=== PATIENT | male | born 1995 | race Caucasian/White ===

== ENCOUNTER 2017-02-02 05:37 | Emergency (ER) | payer OTHER ==
[~2017-02-02] VITALS: Ht 182.9 cm; Wt 115.3 kg
[2017-02-02 05:42] VITALS: TEMP 37.7; Ht 182.9 cm; Wt 115.3 kg
--- NOTE | 2017-02-02 06:14 | EMERGENCY ROOM VISIT NOTE ---
History Report prepared by Larissa: Karen Gómez Under the Supervision of: Dr. Ashley Almanzar M.D. First contact with patient: 05:50 Chief Complaint: ILLNESS Stated Complaint: PNEUMONIA,HIGH FEVER,VOMITING,FEEL LIKE PASSING OU History of Present Illness The patient is a 21 year old male who presents to the Emergency Room with complaints of persistent illness starting 10 days ago. He has had a productive cough. The patient first went to a clinic that started him on clarithromycin for bronchitis. He took it for 6 days without any improvement so went to the doctor yesterday. He had a chest X-ray which showed pneumonia. He was prescribed a new antibiotic which he has not started yet. He has had a low fever for the past 4-5 days. Last night his fever worsened. At 2300 his temperature was 103.7. He took some Tylenol which helped somewhat. He woke up at 0500 today with vomiting. He felt like passing out. He was in [place] over the summer. He denies any other recent travel. Source of History: patient Onset: 10 days ago Position: other (global) Quality: other (illness) Timing: other (persistent) Associated Symptoms: + fevers, + cough, + vomiting Review of Systems See HPI for pertinent positives & negatives. A total of 10 systems reviewed and were otherwise negative. Past Medical & Surgical Medical Problems: (1) No chronic problems Family History No pertinent family history stated. Social History Smoking Status: Never Smoker Marital Status: single Occupation Status: [employer] student Current/Historical Medications Scheduled Doxycycline Monohydrate (Monodox), 100 MG PO BID Allergies Coded Allergies: Amoxicillin (Verified Allergy, Unknown, unknown, 02/02/17) Dried Fruit (Verified Allergy, Unknown, hives, 02/02/17) Peanut (Verified Allergy, Unknown, hives, 02/02/17) Physical Exam Vital Signs Date Time Temp Pulse Resp B/P (MAP) Pulse Ox O2 Delivery O2 Flow Rate FiO2 02/02/17 08:18 76 14 118/77 96 02/02/17 07:02 94 02/02/17 07:00 96 18 120/67 94 Room Air 02/02/17 05:42 37.7 110 18 133/84 95 Room Air Physical Exam Vital signs reviewed. General: Well-appearing male, dry cough, in no significant distress. HEENT: Nasal congestion. No scleral icterus, PERRLA, neck supple. No meningeal signs. Mild erythema to the posterior oropharynx. Atraumatic. Mild tenderness to palpation over the maxillary sinuses bilaterally. No tenderness over the frontal sinus. Cardiovascular: Regular rate and rhythm, no extra sounds. Pulmonary: Clear to auscultation bilaterally, normal work of breathing. Abdomen: Soft, nontender, nondistended, positive bowel sounds. Musculoskeletal: Atraumatic, no peripheral edema. Neurologic: Patient awake alert and oriented x 3, full strength in all 4 extremities. Cranial nerves 2 through 12 grossly intact. Skin: Warm, dry, no rash Medical Decision & Procedures ER Provider Diagnostic Interpretation: X-ray results as stated below per interpretation by me and the radiologist: CHEST 2 VIEWS ROUTINE CLINICAL HISTORY: Fever, cough. COMPARISON STUDY: No previous studies for comparison. FINDINGS: The cardiac and mediastinal contours are normal. There is no evidence of focal pulmonary consolidation. There is no evidence of failure. No pleural effusions are visualized.[ IMPRESSION: No active disease in the chest. Electronically signed by: Rodríguez Woodard M.D. 02/02/2017 6:33 AM Dictated Date/Time: 02/02/2017 6:33 AM Laboratory Results 02/02/17 06:10 Red Blood Count 5.36, Mean Corpuscular Volume 85.1, Mean Corpuscular Hemoglobin 29.9, Mean Corpuscular Hemoglobin Concent 35.1, Mean Platelet Volume 10.6, Neutrophils (%) (Auto) 72.5, Lymphocytes (%) (Auto) 12.8, Monocytes (%) (Auto) 13.8, Eosinophils (%) (Auto) 0.4, Basophils (%) (Auto) 0.2, Neutrophils # (Auto ) 8.98, Lymphocytes # (Auto) 1.59, Monocytes # (Auto) 1.71, Eosinophils # (Auto ) 0.05, Basophils # (Auto) 0.03 02/02/17 06:10 Test 02/02/17 05:44 02/02/17 06:10 Influenza Type A (RT-PCR) Neg for Influ A (NEG) Influenza Type B (RT-PCR) Neg for Influ B (NEG) White Blood Count 12.40 K/uL (4.8-10.8) Red Blood Count 5.36 M/uL (4.7-6.1) Hemoglobin 16.0 g/dL (14.0-18.0) Hematocrit 45.6 % (42-52) Mean Corpuscular Volume 85.1 fL (80-100) Mean Corpuscular Hemoglobin 29.9 pg (25-34) Mean Corpuscular Hemoglobin Concent 35.1 g/dl (32-36) Platelet Count 174 K/uL (130-400) Mean Platelet Volume 10.6 fL (7.4-10.4) Neutrophils (%) (Auto) 72.5 % Lymphocytes (%) (Auto) 12.8 % Monocytes (%) (Auto) 13.8 % Eosinophils (%) (Auto) 0.4 % Basophils (%) (Auto) 0.2 % Neutrophils # (Auto) 8.98 K/uL (1.4-6.5) Lymphocytes # (Auto) 1.59 K/uL (1.2-3.4) Monocytes # (Auto) 1.71 K/uL (0.11-0.59) Eosinophils # (Auto) 0.05 K/uL (0-0.5) Basophils # (Auto) 0.03 K/uL (0-0.2) RDW Standard Deviation 40.6 fL (36.4-46.3) RDW Coefficient of Variation 13.1 % (11.5-14.5) Immature Granulocyte % (Auto) 0.3 % Immature Granulocyte # (Auto) 0.04 K/uL (0.00-0.02) Anion Gap 8.0 mmol/L (3-11) Est Creatinine Clear Calc Drug Dose 141.7 ml/min Estimated GFR () 112.6 Estimated GFR (Non- 97.2 BUN/Creatinine Ratio 9.6 (10-20) Calcium Level 8.9 mg/dl (8.5-10.1) Total Bilirubin 0.9 mg/dl (0.2-1) Direct Bilirubin 0.3 mg/dl (0-0.2) Aspartate Amino Transf (AST/SGOT) 27 U/L (15-37) Alanine Aminotransferase (ALT/SGPT) 56 U/L (12-78) Alkaline Phosphatase 127 U/L (45-117) Total Protein 7.7 gm/dl (6.4-8.2) Albumin 3.4 gm/dl (3.4-5.0) Laboratory results per my review. Medications Administered Medications (Trade) Dose Ordered Sig/Gricelda Route Start Time Stop Time Status Last Admin Dose Admin Sodium Chloride 500 ml @ 999 mls/hr Q31M STAT IV 02/02/17 06:41 02/02/17 07:11 DC 02/02/17 06:59 999 MLS/HR Ketorolac Tromethamine (Toradol Inj) 30 mg NOW STAT IV 02/02/17 06:42 02/02/17 06:43 DC 02/02/17 06:59 30 MG Pseudoephedrine HCl (Sudafed Tab) 60 mg NOW STAT PO 02/02/17 07:20 02/02/17 07:21 DC 02/02/17 07:35 60 MG Doxycycline Hyclate (Vibramycin Cap) 100 mg ONE ONCE PO 02/02/17 08:00 02/02/17 08:01 DC 02/02/17 08:15 100 MG ED Course 0601: Past medical records reviewed. The patient was evaluated in room B10. A complete history and physical examination was performed. 0641: NSS 500 ml @ 999 mls/hr IV. 0642: Toradol Inj 30 mg IV. 0718: I reevaluated the patient. I updated him on the results. He will go for CT. 0720: Sudafed Tab 60 mg PO. Medical Decision Differential diagnosis: Influenza, other viral illness, pneumonia, urinary tract infection, metabolic abnormality, medication effect, cellulitis, meningitis, intra-abdominal source. This patient was evaluated and appeared to be in no significant distress. Physical examination is consistent with a viral type etiology with a likely secondary sinusitis. The patient has already completed a course of clarithromycin. He remains febrile. CT scan of sinuses was performed and is read as above. There is no bony erosion. Physical examination reveals no meningeal signs. Laboratory work reveals a normal white blood cell count. The patient was given a prescription for doxycycline 100 mg twice a day for 10 days as he is allergic to penicillins and recently completed a macrolide. Patient was advised to use Sudafed every 6 hours as needed for nasal congestion, Tylenol as needed for pain and to complete the course of doxycycline as prescribed. He'll follow-up with [facility] or his PCP for reevaluation and return to the ER for worsening of symptoms or any medical concerns. Impression Primary Impression: Sinusitis Additional Impression: Febrile illness Scribe Attestation The scribe's documentation has been prepared under my direction and personally reviewed by me in its entirety. I confirm that the note above accurately reflects all work, treatment, procedures, and medical decision making performed by me. Departure Information Prescriptions Doxycycline Monohydrate (Monodox) 100 Mg Cap 100 MG PO BID for 10 Days, #20 CAP Prov: Ashley Almanzar M.D. 02/02/17 Referrals No Doctor, Assigned (PCP) Patient Instructions My [facility] Problem Qualifiers
--- NOTE | 2017-02-02 06:34 | DIAGNOSTIC IMAGING REPORT ---
CHEST 2 VIEWS ROUTINE CLINICAL HISTORY: Fever, cough. COMPARISON STUDY: No previous studies for comparison. FINDINGS: The cardiac and mediastinal contours are normal. There is no evidence of focal pulmonary consolidation. There is no evidence of failure. No pleural effusions are visualized.[ IMPRESSION: No active disease in the chest. Electronically signed by: Rodríguez Woodard M.D. 02/02/2017 6:33 AM Dictated Date/Time: 02/02/2017 6:33 AM
[2017-02-02] MEDS ORDERED: SODIUM CHLORIDE 0.9% 500ML 500 ML IV STA (06:41)
[2017-02-02] MEDS ORDERED: KETOROLAC TROMETHAMINE 30 MG/ML VIAL IV STA (06:42)
[2017-02-02 07:18] LABS: BASO % 0.2 %; BASO ABS # 0.03 K/uL (0-0.2); COMPLETE YES; EOS % 0.4 %; HEMATOCRIT 45.6 % (42-52); IG% 0.3 %; LYMPH % 12.8 %; LYMPH ABS # 1.59 K/uL (1.2-3.4); MEAN CELL VOLUME 85.1 fL (80-100); MEAN CORPUSCULAR HEMOGLOBIN 29.9 pg (25-34); MEAN CORPUSCULAR HGB CONC 35.1 g/dl (32-36); MEAN PLATELET VOLUME 10.6 fL (7.4-10.4); MONO % 13.8 %; NEUT % 72.5 %; PLATELET COUNT 174 K/uL (130-400); RED BLOOD COUNT 5.36 M/uL (4.7-6.1)
[2017-02-02] MEDS ORDERED: PSEUDOEPHEDRINE HCL 30 MG TAB PO STA (07:20)
[2017-02-02 07:25] LABS: BUN/CREATININE RATIO 9.6 (10-20); CALCIUM 8.9 mg/dl (8.5-10.1); CREATININE 1.09 mg/dl (0.60-1.40); POTASSIUM 3.6 mmol/L (3.5-5.1)
--- NOTE | 2017-02-02 07:56 | DIAGNOSTIC IMAGING REPORT ---
SINUS CT WITHOUT CONTRAST CLINICAL HISTORY: Fever and facial pain. Completed antibiotic therapy. COMPARISON STUDY: None. Technique: Helical axial images of the sinuses were obtained without IV contrast. Coronal reformats were viewed. A dose lowering technique was utilized adhering to the principles of ALARA. CT DOSE: 678.86 mGy.cm FINDINGS: Visualized portions of the intracranial contents are unremarkable on this unenhanced exam. The orbits are unremarkable. The mastoid air cells are clear and there is no fluid within the middle ears. Note is made of marked rightward deviation of the nasal septum with spur formation. There is a suspected mucous retention cyst within the right maxillary sinus. There is moderate polypoid mucosal thickening of the maxillary, ethmoid and frontal sinuses. The ostiomeatal complexes and left frontoethmoidal recess are occluded by mucosal thickening. Cribriform plate is intact. Bony remodeling of the turbinates is noted. Secretions are noted within the nasal cavity and nasopharynx. IMPRESSION: 1. Moderate polypoid mucosal thickening of the sinuses. No air-fluid levels. Secretions within the nasal cavity and nasopharynx. 2. Occluded ostiomeatal complexes and left frontoethmoidal recess. 3. Marked rightward deviation of the nasal septum with spur formation. Electronically signed by: Sanket Dhillon M.D. 02/02/2017 7:55 AM Dictated Date/Time: 02/02/2017 7:46 AM
[2017-02-02 07:58] LABS: INFLUENZA A PCR Neg for Influ A (NEG); INFLUENZA B PCR Neg for Influ B (NEG)
[2017-02-02] MEDS ORDERED: DOXYCYCLINE HYCLATE 100 MG CAP PO ONE (08:00)
[2017-02-02] MEDS ORDERED: DOXY100C76 PO (08:05)
[2017-02-02 08:18] VITALS: BP 118/77; PULSE 76; O2SAT 96
== END 2017-02-02 08:19 | disposition home or self-care (01) ==
LOC: C.EDB 05:39
DX: J32.9 Chronic sinusitis, unspecified (principal); R50.9 Fever, unspecified